=== PATIENT | female | born 1965 | race African-American/Black ===

== ENCOUNTER 2019-01-14 09:10 | Emergency (ER) | payer OTHER ==
[~2019-01-14] VITALS: Ht 152.4 cm; Wt 70.3 kg
[~2019-01-14 09:10] MED LIST: AMOX1TAB12 PO; AVALIDE 150-12.1 TA1; AVAPRO300 MG; CATAFLAM50 MG PO; CEFTIN250 MG PO; CIPRO500 MG PO; DICLOFENAC SODI50 MG PO; DOLOGEN CAPLET1 EACH PO; EC-NAPROSYN500 MG PO; FERRO-TIME325 MG PO; GLUCOTROL10 MG; GLUMETZA1000 MG; HUMULIN 70100 UNIT/1; INTESTINEX680 MG PO; KETO10TA2 PO; MEDROL4 MG PO; NABUMETONE750 MG PO; ORPH100T PO; TAMS0.4C PO; URIN D.S. TABLE1 TAB PO
[2019-01-14] MEDS ORDERED: [UNRECOGNIZED DRUG - OTHER] (09:24)
[2019-01-14] MEDS ORDERED: PROTONIX40 MG PO (09:25)
[2019-01-14] MEDS ORDERED: ZANTAC300 MG PO (09:25)
[2019-01-14] MEDS ORDERED: COZAAR100 MG PO (09:25)
[2019-01-14] MEDS ORDERED: TOPROL XL25 M1 PO (09:26)
[2019-01-14] MEDS ORDERED: TRULANCE3 MG PO (09:26)
[2019-01-14] MEDS ORDERED: COLACE100 MG PO (09:26)
[2019-01-14] MEDS ORDERED: NEXIUM5 MG PO (09:27)
[2019-01-14] MEDS ORDERED: ASA81 MG PO (09:27)
[2019-01-14] MEDS ORDERED: LIPITOR40 MG PO (09:27)
== END 2019-01-14 21:02 | disposition home or self-care (01) ==
LOC: ER 09:10
DX: K52.89 Other specified noninfective gastroenteritis and colitis (principal)

== ENCOUNTER 2019-03-23 05:45 | Inpatient (IN) | payer OTHER ==
[~2019-03-23] VITALS: Ht 182.9 cm; Wt 114.8 kg
[~2019-03-23 05:45] MED LIST changes: +ASA81 MG PO; +COLACE100 MG PO; +COZAAR100 MG PO; +LIPITOR40 MG PO; +NEXIUM5 MG PO; +PROTONIX40 MG PO; +TOPROL XL25 M1 PO; +TRULANCE3 MG PO; +ZANTAC300 MG PO; +[UNRECOGNIZED DRUG - OTHER]
[2019-03-23] MEDS ORDERED: TRESIBA100 UNIT/1 (05:59)
[2019-03-23] MEDS ORDERED: MOTION SICKNESS25 M1 PO (07:10)
[2019-03-27] MEDS ORDERED: COZAAR100 MG PO (14:47)
[2019-03-27] MEDS ORDERED: LIPITOR40 MG PO (14:47)
[2019-03-27] MEDS ORDERED: PROTONIX40 MG PO (14:48)
[2019-03-27] MEDS ORDERED: COLACE100 MG PO (14:48)
[2019-03-27] MEDS ORDERED: PEPCID AC20 MG PO (14:49)
[2019-03-27] MEDS ORDERED: INTEGRA PLUS C1 EACH PO (14:49)
[2019-03-27] MEDS ORDERED: FOLIC ACID1 MG PO (14:50)
[2019-03-27] MEDS ORDERED: VITAMIN B-121000 MC2 SL (14:50)
[2019-03-27] MEDS ORDERED: TOPROL XL25 M1 PO (14:51)
== END 2019-03-27 17:02 | disposition home or self-care (01) | DRG 812 ==
LOC: ER 05:45 → MEDI 19:43 → MEDJ 03-24 14:34
PROVIDERS: ADMIT Internal Medicine
PROC: 0DJ08ZZ Inspection of Upper Intestinal Tract, Via Natural or Artificial Opening Endoscopic (ICD-10-PCS; principal; 2019-03-23)
PROC: 4A033R1 Measurement of Arterial Saturation, Peripheral, Percutaneous Approach (ICD-10-PCS; 2019-03-23)
PROC: 30233N1 Transfusion of Nonautologous Red Blood Cells into Peripheral Vein, Percutaneous Approach (ICD-10-PCS; 2019-03-23)
PROC: 4A12X4Z Monitoring of Cardiac Electrical Activity, External Approach (ICD-10-PCS; 2019-03-23)
PROC: 02HV33Z Insertion of Infusion Device into Superior Vena Cava, Percutaneous Approach (ICD-10-PCS; 2019-03-23)
DX: D50.8 Other iron deficiency anemias (principal); K25.3 Acute gastric ulcer without hemorrhage or perforation; I10 Essential (primary) hypertension; I87.2 Venous insufficiency (chronic) (peripheral); E11.65 Type 2 diabetes mellitus with hyperglycemia; Z79.4 Long term (current) use of insulin

== ENCOUNTER 2019-07-20 12:34 | Emergency (ER) | payer OTHER ==
[~2019-07-20] VITALS: Ht 182.9 cm; Wt 114.3 kg
[~2019-07-20 12:34] MED LIST changes: +FOLIC ACID1 MG PO; +INTEGRA PLUS C1 EACH PO; +MOTION SICKNESS25 M1 PO; +PEPCID AC20 MG PO; +TRESIBA100 UNIT/1; +VITAMIN B-121000 MC2 SL
== END 2019-07-20 20:14 | disposition home or self-care (01) ==
LOC: ER 12:34
DX: I88.0 Nonspecific mesenteric lymphadenitis (principal); N20.0 Calculus of kidney

== ENCOUNTER 2020-01-23 23:51 | Emergency (ER) | payer OTHER ==
[~2020-01-23] VITALS: Ht 182.9 cm; Wt 113.4 kg
== END 2020-01-24 06:13 | disposition home or self-care (01) ==
LOC: ER 23:51 → CPU-OBS 23:54 → ER 01-24 06:13
DX: R07.89 Other chest pain (principal); R11.0 Nausea; F41.8 Other specified anxiety disorders; Z03.818 Encounter for observation for suspected exposure to other biological agents ruled out
CPT/HCPCS: G0378; G0379; 93005

== ENCOUNTER 2020-03-11 08:26 | Emergency (ER) | payer OTHER ==
[~2020-03-11] VITALS: Ht 182.9 cm; Wt 113.4 kg
[2020-03-11] MEDS ORDERED: NORFLEX100MG PO (13:15)
[2020-03-11] MEDS ORDERED: KETO10TA2 PO (13:15)
== END 2020-03-11 14:24 | disposition home or self-care (01) ==
LOC: ER 08:26
DX: M25.562 Pain in left knee (principal)

== ENCOUNTER 2020-12-12 15:19 | Emergency (ER) | payer OTHER ==
[~2020-12-12] VITALS: Ht 182.9 cm; Wt 113.4 kg
[~2020-12-12 15:19] MED LIST changes: +NORFLEX100MG PO
[2020-12-12] MEDS ORDERED: PEPCID AC20 MG PO (18:26)
== END 2020-12-12 18:43 | disposition home or self-care (01) ==
LOC: ER 15:19
DX: K29.70 Gastritis, unspecified, without bleeding (principal); R07.89 Other chest pain; R10.13 Epigastric pain

== ENCOUNTER 2021-01-23 13:17 | Emergency (ER) | payer OTHER ==
[~2021-01-23] VITALS: Ht 182.9 cm; Wt 116.1 kg
== END 2021-01-24 19:29 | disposition home or self-care (01) ==
LOC: ER 13:17
DX: I21.4 Non-ST elevation (NSTEMI) myocardial infarction (principal); E11.65 Type 2 diabetes mellitus with hyperglycemia; I11.9 Hypertensive heart disease without heart failure; D64.9 Anemia, unspecified; R00.1 Bradycardia, unspecified

== ENCOUNTER 2022-06-28 18:50 | Emergency (ER) | payer OTHER ==
[~2022-06-28] VITALS: Ht 182.9 cm; Wt 108.0 kg
== END 2022-06-28 22:29 | disposition home or self-care (01) ==
LOC: ER 18:50
DX: M79.672 Pain in left foot (principal); Z91.041 Radiographic dye allergy status

== ENCOUNTER 2022-06-30 21:31 | Emergency (ER) | payer OTHER ==
[~2022-06-30] VITALS: Ht 182.9 cm; Wt 108.0 kg
== END 2022-06-30 22:33 | disposition home or self-care (01) ==
LOC: ER 21:31
DX: M25.572 Pain in left ankle and joints of left foot (principal); E11.9 Type 2 diabetes mellitus without complications; Z79.84 Long term (current) use of oral hypoglycemic drugs; Z88.8 Allergy status to other drugs, medicaments and biological substances

== ENCOUNTER 2023-01-01 08:53 | Emergency (ER) | payer OTHER ==
[~2023-01-01] VITALS: Ht 182.9 cm; Wt 104.3 kg
[2023-01-01] MEDS ORDERED: GLIPIZIDE XL5 MG PO (09:22)
[2023-01-01] MEDS ORDERED: GLUMETZA1000 MG PO (09:22)
[2023-01-01] MEDS ORDERED: TOPROL XL25 M1 PO (09:23)
== END 2023-01-01 11:44 | disposition home or self-care (01) ==
LOC: ER 08:53
DX: M62.838 Other muscle spasm (principal); Z88.8 Allergy status to other drugs, medicaments and biological substances; E11.9 Type 2 diabetes mellitus without complications; Z79.84 Long term (current) use of oral hypoglycemic drugs; I10 Essential (primary) hypertension

== ENCOUNTER 2023-01-03 10:52 | Emergency (ER) | payer OTHER ==
[~2023-01-03] VITALS: Ht 182.9 cm; Wt 104.3 kg
[~2023-01-03 10:52] MED LIST changes: +GLIPIZIDE XL5 MG PO; +GLUMETZA1000 MG PO
== END 2023-01-03 14:05 | disposition home or self-care (01) ==
LOC: ER 10:52
DX: M54.2 Cervicalgia (principal)

== ENCOUNTER 2023-06-11 16:14 | Emergency (ER) | payer OTHER ==
[~2023-06-11] VITALS: Ht 182.9 cm; Wt 111.1 kg
[2023-06-11] MEDS ORDERED: KETOROLAC TROMETHAMINE 30 MG VIAL IM STA (18:17)
== END 2023-06-11 18:53 | disposition home or self-care (01) ==
LOC: ER 16:15
DX: M79.671 Pain in right foot (principal); Z91.041 Radiographic dye allergy status

== ENCOUNTER 2023-11-02 08:55 | Emergency (ER) | payer OTHER ==
[~2023-11-02] VITALS: Ht 182.9 cm; Wt 115.7 kg
[~2023-11-02 08:55] MED LIST changes: +HUMULIN 70100 UNIT/2 SUBCUTANEO
[2023-11-02] MEDS ORDERED: KETOROLAC TROMETHAMINE 60 MG VIAL IM STA (09:42)
[2023-11-02] MEDS ORDERED: KETOROLAC TROMETHAMINE 60 MG VIAL IM ONE (09:52)
[2023-11-02 10:09] LABS: HEMATOCRIT 37.6 % (36.0-45.00); HEMOGLOBIN 12.3 g/dL (12.0-15.00); MEAN CELL VOLUME 81.4 fL (80.00-100.00); MEAN CORPUSCULAR HEMOGLOBIN 26.6 pg (27.00-32.0); MEAN CORPUSCULAR HGB CONC 32.6 g/dl (32.0-36.0); PLATELET COUNT 212 K/uL (150-450); RED BLOOD COUNT 4.62 M/uL (4.00-6.00); RED CELL DISTRIBUTION WIDTH 14.8 % (11.5-14.5)
== END 2023-11-02 11:37 | disposition home or self-care (01) ==
LOC: ER 08:57
PROVIDERS: General Practice
DX: R00.2 Palpitations (principal); Z20.822 Contact with and (suspected) exposure to COVID-19; E11.9 Type 2 diabetes mellitus without complications; Z79.4 Long term (current) use of insulin; Z79.84 Long term (current) use of oral hypoglycemic drugs; I10 Essential (primary) hypertension; Z88.8 Allergy status to other drugs, medicaments and biological substances

== ENCOUNTER 2023-11-06 11:31 | Emergency (ER) | payer OTHER ==
[~2023-11-06] VITALS: Ht 182.9 cm; Wt 113.4 kg
[2023-11-06] MEDS ORDERED: FAMOtidine 10 MG/ML (4ML VIAL) IV ONE (13:00)
[2023-11-06] MEDS ORDERED: ONDANSETRON HCL 2 MG/ML VIAL IV ONE (13:00)
[2023-11-06] MEDS ORDERED: 0.9 % SODIUM CHLORIDE 1,000 ML IV ONE (13:00)
[2023-11-06] MEDS ORDERED: METHYLPREDNISOLONE SOD SUCC 40 MG VIAL IV ONE (13:30)
[2023-11-06] MEDS ORDERED: DIPHENHYDRAMINE HCL 50 MG/ML VIAL 1ML IV ONE (13:30)
[2023-11-06] MEDS ORDERED: DIPHENHYDRAMINE HCL 50 MG/ML VIAL 1ML ONE (14:05)
[2023-11-06] MEDS ORDERED: ONDANSETRON HCL 2 MG/ML VIAL ONE (14:05)
[2023-11-06] MEDS ORDERED: FAMOTIDINE/PF 20 MG/2 ML VIAL ONE (14:06)
[2023-11-06] MEDS ORDERED: METHYLPREDNISOLONE SOD SUCC 40 MG VIAL ONE (14:06)
[2023-11-06 14:38] LABS: HEMATOCRIT 38.3 % (36.0-45.00); HEMOGLOBIN 12.5 g/dL (12.0-15.00); MEAN CELL VOLUME 80.1 fL (80.00-100.00); MEAN CORPUSCULAR HEMOGLOBIN 26.1 pg (27.00-32.0); MEAN CORPUSCULAR HGB CONC 32.6 g/dl (32.0-36.0); PLATELET COUNT 226 K/uL (150-450); RED BLOOD COUNT 4.78 M/uL (4.00-6.00); RED CELL DISTRIBUTION WIDTH 14.8 % (11.5-14.5)
[2023-11-06 14:54] LABS: INR 1.01
[2023-11-06 14:56] LABS: ALBUMIN 3.7 gm/dL (3.4-5.0); BILIRUBIN TOTAL 0.39 mg/dL (0.3-1.2); CALCIUM 9.6 mg/dL (8.5-10.1); CREATININE SERUM 0.7 mg/dL (0.55-1.02); GFR 85.94; GLOBULINA 4.2 G/DL (2.4-3.5); PH,URINE 5.5 (5.0-8.0); POTASSIUM 4.01 mEq/L (3.5-5.1); TOTAL PROTEIN 7.9 gm/dL (6.4-8.2); URINE APPEARANCE Cloudy; URINE BILIRRUBIN Negative (NEGATIVE); URINE BLOOD Negative; URINE COLOR Yellow; URINE GLUCOSE Negative (NEGATIVE); URINE KETONE Trace (NEGATIVE); URINE LEUKOCYTE Small; URINE NITRATE Negative; URINE PROTEIN Trace (NEGATIVE); URINE UROBILINOGEN 0.2 E.U./dl
[2023-11-06 15:01] LABS: URINE EPITHELIAL CELLS 78.5 uL (0.0-38.8); URINE RBC 17.1 uL (0.0-20.8); URINE WBC 84.2 uL (0.0-23.2)
[2023-11-06 16:04] LABS: URINE BACTERIA > 9821.5 uL (0.0-1933); URINE CAST 1.22 uL (0.0-1.40)
== END 2023-11-06 18:25 | disposition home or self-care (01) ==
LOC: ER 11:33
PROVIDERS: General Practice
DX: R10.13 Epigastric pain (principal); N20.0 Calculus of kidney; E11.9 Type 2 diabetes mellitus without complications; Z79.84 Long term (current) use of oral hypoglycemic drugs; Z79.4 Long term (current) use of insulin; I10 Essential (primary) hypertension; Z88.8 Allergy status to other drugs, medicaments and biological substances

== ENCOUNTER 2024-02-17 08:06 | Emergency (ER) | payer OTHER ==
[~2024-02-17] VITALS: Ht 182.9 cm; Wt 117.0 kg
[2024-02-17] MEDS ORDERED: KETOROLAC TROMETHAMINE 60 MG VIAL IM ONE (09:00)
== END 2024-02-17 12:39 | disposition home or self-care (01) ==
LOC: ER 08:09
DX: M79.671 Pain in right foot (principal); Z91.041 Radiographic dye allergy status; I10 Essential (primary) hypertension; M77.31 Calcaneal spur, right foot; M76.891 Other specified enthesopathies of right lower limb, excluding foot
CPT/HCPCS: 73630; 96372; 99283; J1885

== ENCOUNTER 2024-04-03 19:56 | Emergency (ER) | payer OTHER ==
[~2024-04-03] VITALS: Ht 182.9 cm; Wt 113.4 kg
[2024-04-03] MEDS ORDERED: ASPIRIN 325 MG TABLET PO ONE (23:15)
[2024-04-03] MEDS ORDERED: FAMOTIDINE/PF 20 MG/2 ML VIAL ONE (23:15)
[2024-04-03] MEDS ORDERED: FAMOtidine 20 MG TABLET PO ONE (23:15)
[2024-04-04 00:25] LABS: HEMATOCRIT 38.9 % (36.0-45.00); HEMOGLOBIN 12.3 g/dL (12.0-15.00); MEAN CELL VOLUME 82.5 fL (80.00-100.00); MEAN CORPUSCULAR HEMOGLOBIN 26.1 pg (27.00-32.0); MEAN CORPUSCULAR HGB CONC 31.7 g/dl (32.0-36.0); PLATELET COUNT 218 K/uL (150-450); RED BLOOD COUNT 4.72 M/uL (4.00-6.00)
== END 2024-04-04 02:09 | disposition home or self-care (01) ==
LOC: ER 19:59
PROVIDERS: General Practice
DX: K21.9 Gastro-esophageal reflux disease without esophagitis (principal); R07.89 Other chest pain; E11.9 Type 2 diabetes mellitus without complications; Z79.4 Long term (current) use of insulin; Z79.84 Long term (current) use of oral hypoglycemic drugs; I10 Essential (primary) hypertension; Z88.8 Allergy status to other drugs, medicaments and biological substances

== ENCOUNTER 2024-04-15 09:02 | Emergency (ER) | payer OTHER ==
[~2024-04-15] VITALS: Ht 182.9 cm; Wt 114.8 kg
[2024-04-15] MEDS ORDERED: ORPHENADRINE CITRATE 30 MG/ML AMPUL IM ONE (10:15)
[2024-04-15] MEDS ORDERED: KETOROLAC TROMETHAMINE 60 MG VIAL IM ONE ×2 (10:15→10:22)
[2024-04-15] MEDS ORDERED: ORPHENADRINE CITRATE 30 MG/ML AMPUL ONE (10:22)
== END 2024-04-15 11:53 ==
LOC: ER 09:04
DX: G43.809 Other migraine, not intractable, without status migrainosus (principal); Z91.041 Radiographic dye allergy status; I10 Essential (primary) hypertension; K29.70 Gastritis, unspecified, without bleeding; E11.9 Type 2 diabetes mellitus without complications; Z79.4 Long term (current) use of insulin
CPT/HCPCS: 96372; 99282; J1885; J2360

== ENCOUNTER 2024-10-01 06:29 | Emergency (ER) | payer OTHER ==
[~2024-10-01] VITALS: Ht 182.9 cm; Wt 114.3 kg
[2024-10-01] MEDS ORDERED: DICLOFENAC SODI75 MG PO (06:52)
[2024-10-01] MEDS ORDERED: NORFLEX100MG PO (06:52)
[2024-10-01] MEDS ORDERED: KETOROLAC TROMETHAMINE 60 MG VIAL IM ONE (07:00)
[2024-10-01] MEDS ORDERED: ORPHENADRINE CITRATE 30 MG/ML AMPUL IM ONE (07:00)
[2024-10-01] MEDS ORDERED: AZITHROMYCIN 500 MG TABLET PO ONE (07:15)
[2024-10-02] MEDS ORDERED: ORASEP SPRAY30 ML MM (02:05)
[2024-10-02] MEDS ORDERED: DOLOGESIC-DF 51 EACH PO (02:05)
== END 2024-10-01 07:09 | disposition home or self-care (01) ==
LOC: ER 06:40
DX: M62.838 Other muscle spasm (principal); E11.9 Type 2 diabetes mellitus without complications; Z79.4 Long term (current) use of insulin; Z79.84 Long term (current) use of oral hypoglycemic drugs; I10 Essential (primary) hypertension; Z88.8 Allergy status to other drugs, medicaments and biological substances

== ENCOUNTER 2024-10-01 19:56 | Emergency (ER) | payer OTHER ==
[~2024-10-01] VITALS: Ht 182.9 cm; Wt 113.9 kg
[~2024-10-01 19:56] MED LIST changes: +DICLOFENAC SODI75 MG PO
[2024-10-01 22:19] LABS: BASO % 0.7 % (0.1-1.2); EOS # 0.14 (0.04-0.54); EOS % 1.8 % (0.7-7.0); LYMPH # 2.65 (1.18-3.74); LYMPH % 34.6 % (19.3-53.1); MEAN PLATELET VOLUME 12.10 fl (9.4-12.4); MONO # 0.78 (0.24-0.82); MONO % 10.2 % (4.7-12.5); NEUT # 4.04 (1.56-6.13); NEUT % 52.6 % (34.0-71.1); RED CELL DISTRIBUTION WIDTH 14.8 % (11.6-14.4)
[2024-10-02 00:01] LABS: COVID-19 AG NEGATIVE (NEGATIVE)
[2024-10-02] MEDS ORDERED: KETOROLAC TROMETHAMINE 60 MG VIAL IM STA (02:01)
[2024-10-02] MEDS ORDERED: DOLOGESIC-DF 51 EACH PO (02:05)
[2024-10-02] MEDS ORDERED: ORASEP SPRAY30 ML MM (02:05)
== END 2024-10-02 02:16 ==
LOC: ER 20:08
PROVIDERS: Preventive Medicine Public Health & General Preventive Medicine
DX: J10.1 Influenza due to other identified influenza virus with other respiratory manifestations (principal); Z20.822 Contact with and (suspected) exposure to COVID-19; Z88.8 Allergy status to other drugs, medicaments and biological substances; E11.9 Type 2 diabetes mellitus without complications; Z79.4 Long term (current) use of insulin; Z79.84 Long term (current) use of oral hypoglycemic drugs; I10 Essential (primary) hypertension

== ENCOUNTER 2025-01-23 14:35 | Emergency (ER) | payer OTHER ==
[~2025-01-23] VITALS: Ht 182.9 cm; Wt 114.3 kg
[~2025-01-23 14:35] MED LIST changes: +DOLOGESIC-DF 51 EACH PO; +ORASEP SPRAY30 ML MM
[2025-01-23] MEDS ORDERED: ORPHENADRINE CITRATE 30 MG/ML AMPUL IM ONE (16:00)
[2025-01-23] MEDS ORDERED: DEXAMETHASONE SODIUM PHOSPHATE 4 MG/ML VIAL IM ONE (16:00)
[2025-01-23] MEDS ORDERED: ACETAMINOPHEN 500 MG GEL..CAP PO ONE (16:00)
[2025-01-23 16:36] LABS: BASO % 0.3 % (0.1-1.2); EOS # 0.10 (0.04-0.54); EOS % 1.5 % (0.7-7.0); LYMPH # 1.78 (1.18-3.74); LYMPH % 26.3 % (19.3-53.1); MEAN PLATELET VOLUME 12.20 fl (9.4-12.4); MONO # 0.54 (0.24-0.82); MONO % 8.0 % (4.7-12.5); NEUT # 4.31 (1.56-6.13); NEUT % 63.8 % (34.0-71.1); RED CELL DISTRIBUTION WIDTH 15.1 % (11.6-14.4)
[2025-01-23 17:08] LABS: ALT/SGPT 23.0 U/L (12-78); AST/SGOT 16.0 U/L (15-37); BILIRUBIN TOTAL 0.53 mg/dL (0.3-1.2); BUN CREA RATIO 25.0 (7.0-25.0); CREATININE SERUM 0.73 mg/dL (0.55-1.02); GFR 81.6; GLOBULINA 4.0 G/DL (2.4-3.5); GLUCOSE FASTING 180.0 mg/dL (65-100); OSMOLALITY SERUM 288.0 MOSM/KG (275-295)
[2025-01-23] MEDS ORDERED: IBU800 MG PO (19:56)
[2025-01-23] MEDS ORDERED: PEPCID AC20 MG PO (19:56)
[2025-01-23] MEDS ORDERED: NORFLEX100MG PO (19:56)
[2025-01-23] MEDS ORDERED: KETOROLAC TROMETHAMINE 60 MG VIAL IM ONE (20:00)
== END 2025-01-23 20:25 | disposition home or self-care (01) ==
LOC: ER 14:35
PROVIDERS: General Practice
DX: M62.838 Other muscle spasm (principal); M94.0 Chondrocostal junction syndrome [Tietze]; M54.59 Other low back pain; R10.9 Unspecified abdominal pain; I10 Essential (primary) hypertension; E11.9 Type 2 diabetes mellitus without complications; Z79.84 Long term (current) use of oral hypoglycemic drugs; Z91.041 Radiographic dye allergy status